=== PATIENT | female | born 2000 | race American Indian/Alaskan Native ===

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

== ENCOUNTER 2019-09-19 18:15 | Emergency (ER) | payer MEDICAID ==
[2019-09-19 20:13] VITALS: BP 146/90
[2019-09-19] MEDS ORDERED: IBUPROFEN 400 MG TAB PO ONE (23:32)
--- NOTE | 2019-09-20 | XRay Report ---
Right thumb 3 views INDICATION: Right thumb pain following injury IMPRESSION: No fracture or subluxation identified Signer Name: Jluis López MD Signed: 09/19/2019 11:56 PM Workstation Name: [id number]
[2019-09-20 01:39] LABS: Amorphous Crystals,Urine Few; Bacteria,Urine 2+ /HPF (Negative); Bilirubin,Urine NEG (Negative); Blood,Urine NEG (Negative); Color,Urine Yellow (Yellow); Mucus,Urine FEW /HPF; Protein,Urine <15 mg/dL mg/dL (Negative); Urobilinogen,Urine < 2.0 mg/dL (<2.0)
[2019-09-20 01:43] LABS: HCG Qualitative,Urine Negative (Negative)
[2019-09-20] MEDS ORDERED: cephALEXin 500 MG CAP PO ONE (01:58)
--- NOTE | 2019-09-20 02:02 | Emergency Department Report ---
Upper Extremity - HPI Chief Complaint: Extremity Injury, Upper Stated Complaint: RG THUMB INJURY/SWELLING/UTI Upper Extremity: Right Thumb (Traumatic injury 1 week ago, swollen painful) Occurred When: >5 Days Mechanism: Hit with Object Symptoms: Yes Pain with Movement, Yes Limited Range of Movement, Yes Swelling, Yes Bruising/Ecchymosis, No Deformity, No Numbness, No Weakness Other History: Patient is on nulliparous 18-year-old -[place] female who presents to the ED with complaint of acute onset persistent severe erythematous painful distal right thumb after a car door slammed onto the right thumb about one week ago. Patient also complaints of worsening pain and swelling in the last 2 days. Patient also complains of dysuria, urinary frequency and urgency, suprapubic pressure and low back pain. Patient denies fever, chills, nausea, vomiting, dizziness, headache, chest pain or shortness of breath. ED Review of Systems ROS: Stated complaint: RG THUMB INJURY/SWELLING/UTI Other details as noted in HPI Constitutional: denies: chills, fever Eyes: denies: eye pain, eye discharge, vision change ENT: denies: ear pain, throat pain Respiratory: denies: cough, shortness of breath, wheezing Cardiovascular: denies: chest pain, palpitations Endocrine: no symptoms reported Gastrointestinal: denies: abdominal pain, nausea, diarrhea Genitourinary: denies: urgency, dysuria, discharge Musculoskeletal: joint swelling (distal right thumb pain and swelling), arthralgia (distal right thumb pain and swelling). denies: back pain Skin: denies: rash, lesions Neurological: denies: headache, weakness, paresthesias Psychiatric: denies: anxiety, depression Hematological/Lymphatic: denies: easy bleeding, easy bruising ED Past Medical Hx - Past Medical History Hx Asthma: Yes Additional medical history: eczema - Surgical History Past Surgical History?: Yes Additional Surgical History: Lasix - Social History Smoking Status: Never Smoker Substance Use Type: None - Medications Home Medications: Home Medications Medication Instructions Recorded Confirmed Last Taken Type ALBUTEROL Inhaler (OR & NICU) 2 puff IH QID PRN #1 device 08/23/13 Unknown Rx [ProAir HFA Inhaler] Triamcinolone 0.1% [Kenalog 0.1% 1 applic TP TID #60 g 02/01/14 Unknown Rx CREAM] predniSONE [Deltasone] 20 mg PO QDAY #5 tab 02/01/14 Unknown Rx Bacitracin Zinc Oint [Antibiotic 1 applicatio TP BID #1 tube 12/05/17 Unknown Rx Oint] Cephalexin [Keflex] 500 mg PO BID #14 capsule 12/05/17 Unknown Rx Ibuprofen [Motrin] 400 mg PO Q8H PRN #20 tablet 12/05/17 Unknown Rx Nitrofurantoin Monohyd/M-Cryst 100 mg PO BID 7 Days #14 capsule 12/10/18 Unknown Rx [Macrobid 100 mg Capsule] metroNIDAZOLE [Flagyl] 500 mg PO BID 10 Days #20 tab 12/10/18 Unknown Rx Ibuprofen [Motrin] 400 mg PO Q8H PRN #20 tablet 09/20/19 Unknown Rx Sulfamethoxazole/Trimethoprim 1 each PO Q12H #20 tablet 09/20/19 Unknown Rx [Bactrim DS TAB] Upper Extremity Exam - Exam General: Vital signs noted. No distress. Alert and acting appropriately. Head and Torso: No HEENT Abnormality, No Neck Tenderness, No Chest/Lungs Abnormality, No Abdominal Tenderness, No Back Tenderness Shoulder Exam: Yes Normal Range of Motion in Shoulder, No Shoulder Tenderness, No Clavicle Tenderness, No Shoulder Deformity, No AC Joint Tenderness Arm Exam: No Arm/Humerus Tenderness, No Arm Deformity Elbow: Yes Normal Range of Motion in Elbow, No Elbow Tenderness, No Elbow Deformity Forearm: No Forearm Tenderness, No Forearm Deformity, No Pain with Pronation, No Pain with Supination Wrist: Yes Normal ROM in Wrist, No Wrist Tenderness, No Wrist Deformity, No Snuffbox Tenderness, No Pain with Axial Thumb Compression Hand: Yes Digit Tenderness (distal right thumb tenderness with swelling), No Hand Tenderness, No Hand Deformity, No Normal ROM in Digit(s) (Limited due to distal right thumb tenderness), No Digit(s) Deformity, No Tendon Dysfunction CMS Exam: Yes Broken Skin (small abrasion on distal right thumb erythematous rash), Yes Normal Distal Pulses, Yes Normal Capillary Refill, Yes Normal Distal Sensation ED Course Vital Signs 09/19/19 09/19/19 20:10 20:18 Temperature 98.3 F 98.3 F Pulse Rate 85 69 Respiratory 18 18 Rate Blood Pressure 146/90 146/90 O2 Sat by Pulse 98 100 Oximetry ED Medical Decision Making - Radiology Data Radiology results: report reviewed, image reviewed Right thumb x-ray shows no acute fractures or subluxations - Medical Decision Making This is a 18-year-old female who presented to the ED with distal right thumb pain and swelling with abrasions and redness after a car door slam onto the right thumb over 5 days ago. In the ED, patient is alert and oriented 3 and is not in distress. Patient was treated for pain in the ED and right thumb x-ray shows no acute fractures or subluxations. Urinalysis shows significant urinary tract infection. Patient was discharged home on pain medication and antibiotics for UTI and paronychia and was advised to return to the ED immediately if symptoms get worse, otherwise follow-up with the primary care physician in 7-10 days for reevaluation. - Differential Diagnosis paronychia; cellulitis; thumb fracture; UTI; Thumb sprain Critical care attestation.: If time is entered above; I have spent that time in minutes in the direct care of this critically ill patient, excluding procedure time. ED Disposition Clinical Impression: Acute paronychia of right thumb, Acute urinary tract infection Sprain of right thumb Qualifiers: Encounter type: initial encounter Sprain of finger site: unspecified site Qualified Code(s): S63.601A - Unspecified sprain of right thumb, initial encounter Disposition: TO HOME OR SELFCARE Is pt being admited?: No Does the pt Need Aspirin: No Condition: Stable Instructions: Finger Sprain (ED), Paronychia (ED), Urinary Tract Infection in Women (ED) Additional Instructions: Take medications with food, drink plenty of fluids and follow-up with your [facility] care physician in 5-7 days for reevaluation. Return to the ED immediately if symptoms get worse. Prescriptions: Sulfamethoxazole/Trimethoprim [Bactrim DS TAB] 1 each PO Q12H #20 tablet Ibuprofen [Motrin] 400 mg PO Q8H PRN #20 tablet PRN Reason: Pain , Severe (7-10) Referrals: PRIMARY CARE, [Primary Care Provider] - 3-5 Days Time of Disposition: 02:06 Print Language: [email or web address]
== END 2019-09-20 02:35 | disposition home or self-care (01) ==
LOC: ED 18:15
DX: S63.601A Unspecified sprain of right thumb, initial encounter (principal); N39.0 Urinary tract infection, site not specified; L03.011 Cellulitis of right finger; J45.909 Unspecified asthma, uncomplicated; Z79.899 Other long term (current) drug therapy; Z91.010 Allergy to peanuts; Z91.012 Allergy to eggs; Z91.018 Allergy to other foods; X58.XXXA Exposure to other specified factors, initial encounter; Y93.89 Activity, other specified; Y92.89 Other specified places as the place of occurrence of the external cause; Y99.8 Other external cause status
CPT/HCPCS: 81001; 81025; 87076; 87086; 87186

== ENCOUNTER 2020-07-11 13:02 | Emergency (ER) | payer MEDICAID ==
[2020-07-11] MEDS ORDERED: ACETAMINOPHEN 500 MG TAB PO ONE (13:20)
--- NOTE | 2020-07-11 13:24 | Emergency Department Report ---
ED ENT HPI - General Chief complaint: Sore Throat Stated complaint: POSS PNEUMONIA Time Seen by Provider: 07/11/20 13:07 Source: patient Mode of arrival: Ambulatory Limitations: No Limitations - History of Present Illness Initial comments: Patient is 19 years old female with no significant past medical history. Patient presented to the ER complaining of sore throat and fever for the last 3 days. Patient denied any runny nose cough or congestion. She also denied any nausea or vomiting. No chest pain or shortness of breath. MD complaint: sore throat -: days(s) (3) Consistency: constant Associated Symptoms: fever - Related Data Home Medications Medication Instructions Recorded Confirmed Last Taken No Known Home Medications [No 07/11/20 07/11/20 Unknown Reported Home Medications] Allergies Allergy/AdvReac Type Severity Reaction Status Date / Time egg Allergy Shortness Verified 07/11/20 13:26 of Breath peanut Allergy Rash Verified 07/11/20 13:26 grass pollen AdvReac Rash Verified 07/11/20 13:26 ED Dental HPI - General Chief complaint: Sore Throat Stated complaint: POSS PNEUMONIA Time Seen by Provider: 07/11/20 13:07 Source: patient Mode of arrival: Ambulatory Limitations: No Limitations - Related Data Home Medications Medication Instructions Recorded Confirmed Last Taken No Known Home Medications [No 07/11/20 07/11/20 Unknown Reported Home Medications] Allergies Allergy/AdvReac Type Severity Reaction Status Date / Time egg Allergy Shortness Verified 07/11/20 13:26 of Breath peanut Allergy Rash Verified 07/11/20 13:26 grass pollen AdvReac Rash Verified 07/11/20 13:26 ED Review of Systems ROS: Stated complaint: POSS PNEUMONIA Other details as noted in HPI Comment: All other systems reviewed and negative Constitutional: chills, fever ENT: throat pain. denies: congestion Respiratory: denies: cough, orthopnea Cardiovascular: denies: chest pain, palpitations Gastrointestinal: denies: abdominal pain, nausea, vomiting, diarrhea, constipation, hematemesis, melena, hematochezia Musculoskeletal: denies: back pain Neurological: denies: headache, weakness ED Past Medical Hx - Past Medical History Previous Medical History?: Yes Hx Asthma: Yes Additional medical history: eczema - Surgical History Past Surgical History?: No Additional Surgical History: Lasix - Social History Smoking Status: Never Smoker Substance Use Type: None - Medications Home Medications: Home Medications Medication Instructions Recorded Confirmed Last Taken Type No Known Home Medications [No 07/11/20 07/11/20 Unknown History Reported Home Medications] ED Physical Exam - General Limitations: No Limitations General appearance: alert, in no apparent distress - Head Head exam: Present: atraumatic, normocephalic, normal inspection - Eye Eye exam: Present: normal appearance - ENT ENT exam: Present: other (Pharyngeal erythema, tonsillar exudate.) - Neck Neck exam: Present: normal inspection, full ROM. Absent: tenderness, meningismus, lymphadenopathy, thyromegaly - Respiratory Respiratory exam: Present: normal lung sounds bilaterally - Cardiovascular Cardiovascular Exam: Present: tachycardia - GI/Abdominal GI/Abdominal exam: Present: soft, normal bowel sounds. Absent: distended, tenderness, guarding, rebound, rigid, organomegaly, mass, bruit, pulsatile mass, hernia - Extremities Exam Extremities exam: Present: normal inspection, full ROM, normal capillary refill. Absent: pedal edema, calf tenderness - Back Exam Back exam: Present: normal inspection, full ROM. Absent: CVA tenderness (R), CVA tenderness (L) - Neurological Exam Neurological exam: Present: alert, oriented X3, CN II-XII intact, normal gait, reflexes normal. Absent: motor sensory deficit - Psychiatric Psychiatric exam: Present: normal mood - Skin Skin exam: Present: warm, intact, normal color ED Course Vital Signs 07/11/20 13:12 Temperature 101 F H Pulse Rate 144 H Respiratory 20 Rate Blood Pressure 109/71 [Right] O2 Sat by Pulse 98 Oximetry ED Medical Decision Making - Medical Decision Making Patient is 19 years old female with no significant past medical history. Patient presented to the ER complaining of sore throat and fever for the last 3 days. Patient denied any runny nose cough or congestion. She also denied any nausea or vomiting. No chest pain or shortness of breath. Rapid strep test is negative however patient has clinical evidence of pharyngitis. Patient will be started on amoxicillin and advised to follow-up with her primary doctor in the next 2 to 3 days and to return to the ER if she develop any new symptoms. Critical care attestation.: If time is entered above; I have spent that time in minutes in the direct care of this critically ill patient, excluding procedure time. ED Disposition Clinical Impression: Acute bacterial pharyngitis, Tonsillitis Disposition: TO HOME OR SELFCARE Is pt being admited?: No Condition: Stable Instructions: Pharyngitis (ED), Tonsillitis (ED) Referrals: [facility] [Provider Group] - 3-5 Days
[2020-07-11 15:32] VITALS: BP 107/51
== END 2020-07-11 16:25 | disposition home or self-care (01) ==
LOC: ED 13:02
DX: J02.8 Acute pharyngitis due to other specified organisms (principal); B96.89 Other specified bacterial agents as the cause of diseases classified elsewhere; J45.909 Unspecified asthma, uncomplicated; Z98.890 Other specified postprocedural states; Z91.012 Allergy to eggs; Z91.010 Allergy to peanuts; Z88.8 Allergy status to other drugs, medicaments and biological substances
CPT/HCPCS: 87116; 87430

== ENCOUNTER 2021-10-26 23:43 | Emergency (ER) | payer MEDICAID ==
[2021-10-26 23:52] VITALS: BP 119/57
--- NOTE | 2021-10-26 23:52 | Emergency Department Report ---
- General Stated Complaint: ASTHMA, COLD CHILLS, SOB Time Seen by Provider: 10/26/21 23:49 - History of Present Illness Initial Comments: Patient presents with asthma exacerbation as well as URI symptoms. Both she and her sister have had URI symptoms including cough and congestion with fevers and chills. She has had no vomiting or diarrhea. There have been no rash. She has had no known coronavirus exposure. Patient states that her asthma is also been acting up. She needs more medication for asthma because she was having a hard time breathing. She has never been admitted admitted because of asthma. She is never required intubation. Symptoms have been present for 1 to 2 days. - Related Data Previous Rx's Medication Instructions Recorded Last Taken Type Albuterol Sulfate 5 mg IH 4XD #1 box 10/26/21 Unknown Rx Albuterol Sulfate [Proventil Hfa] 2 puff IH 4XD #1 inh 10/26/21 Unknown Rx Benzonatate [Tessalon Perles] 100 mg PO Q8HR #21 cap 10/26/21 Unknown Rx predniSONE [Deltasone] 50 mg PO QDAY #5 tab 10/26/21 Unknown Rx Allergies Allergy/AdvReac Type Severity Reaction Status Date / Time egg Allergy Shortness Verified 07/11/20 13:26 of Breath peanut Allergy Rash Verified 07/11/20 13:26 grass pollen AdvReac Rash Verified 07/11/20 13:26 ED Review of Systems ROS: Stated complaint: ASTHMA, COLD CHILLS, SOB Other details as noted in HPI Comment: All other systems reviewed and negative Constitutional: fever Eyes: denies: vision change ENT: throat pain Respiratory: cough Cardiovascular: denies: chest pain Endocrine: denies: unexplained weight loss Gastrointestinal: denies: abdominal pain Genitourinary: denies: dysuria Musculoskeletal: denies: back pain Skin: denies: rash Hematological/Lymphatic: denies: easy bruising ED Past Medical Hx - Past Medical History Hx Asthma: Yes Additional medical history: eczema - Surgical History Additional Surgical History: Lasix - Family History Family history: asthma - Social History Smoking Status: Never Smoker Substance Use Type: None - Medications Home Medications: Home Medications Medication Instructions Recorded Confirmed Last Taken Type Albuterol Sulfate 5 mg IH 4XD #1 box 10/26/21 Unknown Rx Albuterol Sulfate [Proventil Hfa] 2 puff IH 4XD #1 inh 10/26/21 Unknown Rx Benzonatate [Tessalon Perles] 100 mg PO Q8HR #21 cap 10/26/21 Unknown Rx predniSONE [Deltasone] 50 mg PO QDAY #5 tab 10/26/21 Unknown Rx ED Physical Exam - General Limitations: No Limitations, Other (Pulse ox noted and normal) General appearance: alert, in no apparent distress - Head Head exam: Present: atraumatic, normocephalic - Eye Eye exam: Present: normal appearance, EOMI - ENT ENT exam: Present: normal orophraynx, normal external ear exam - Neck Neck exam: Present: normal inspection. Absent: meningismus - Respiratory Respiratory exam: Present: normal lung sounds bilaterally. Absent: respiratory distress - Cardiovascular Cardiovascular Exam: Present: regular rate, normal rhythm - Extremities Exam Extremities exam: Present: normal capillary refill - Back Exam Back exam: Present: full ROM - Neurological Exam Neurological exam: Present: alert, oriented X3, CN II-XII intact, normal gait - Psychiatric Psychiatric exam: Present: normal affect, normal mood - Skin Skin exam: Present: warm, dry ED Course Vital Signs 10/26/21 23:45 Temperature 98.5 F Pulse Rate 64 Respiratory 16 Rate Blood Pressure 119/57 [Right] O2 Sat by Pulse 100 Oximetry - Reevaluation(s) Reevaluation #1: 10/27/21 04:07 Patient was discharged ED Medical Decision Making - Medical Decision Making Patient presented with asthma exacerbation as well as URI. Her URI seems to be viral and could be COVID. She certainly could have influenza as well. There are no adventitial breath sounds to suggest pneumonia. She is in no distress. She is not hypoxic. She does not require admission. She was treated symptomatically and referred for outpatient evaluation and testing. Critical Care Time: No Critical care attestation.: If time is entered above; I have spent that time in minutes in the direct care of this critically ill patient, excluding procedure time. ED Disposition Clinical Impression: Asthma exacerbation, Viral URI Disposition: HOME / SELF CARE / HOMELESS Is pt being admited?: No Condition: Stable Instructions: Asthma, Adult, Viral Respiratory Infection, [id number] Additional Instructions: Push fluids. Use Tylenol for fever. Follow-up with your regular doctor for recheck. Follow-up with the referral physician if you do not have a regular doctor. Isolate at home. Consider outpatient coronavirus testing. Prescriptions: Albuterol Sulfate 5 mg IH 4XD #1 box predniSONE [Deltasone] 50 mg PO QDAY #5 tab Albuterol Sulfate [Proventil Hfa] 2 puff IH 4XD #1 inh Benzonatate [Tessalon Perles] 100 mg PO Q8HR #21 cap Referrals: PRIMARY CAREMD [Primary Care Provider] - 3-5 Days VICK DERAS MD [Staff Physician] - 3-5 Days
== END 2021-10-27 00:32 | disposition home or self-care (01) ==
LOC: ED 23:43
DX: J45.901 Unspecified asthma with (acute) exacerbation (principal); J06.9 Acute upper respiratory infection, unspecified; Z98.890 Other specified postprocedural states; Z91.012 Allergy to eggs; Z91.010 Allergy to peanuts; Z91.018 Allergy to other foods
CPT/HCPCS: 99282